=== PATIENT | female | born 1955 | race Caucasian/White ===

== ENCOUNTER 2019-05-03 04:10 | Inpatient (IN) ==
[2019-05-03] MEDS ORDERED: SODIUM CHLORIDE 0.9% 1,000 ML IV STA (04:52)
[2019-05-03] MEDS ORDERED: MORPHINE 4 MG/1 ML VIAL IV STA (04:52)
[2019-05-03] MEDS ORDERED: methylPREDNISolone SOD SUC 125 MG/2 ML VIAL IV STA (04:52)
[2019-05-03] MEDS ORDERED: ALBUTEROL/IPRATROPIUM 3 ML NEB RESP TX STA (04:52)
[2019-05-03] MEDS ORDERED: ONDANSETRON 4 MG/2 ML VIAL IV STA ×2 (04:52→06:09)
[2019-05-03 05:01] LABS: Basophils % 0.5 % (0.0-0.8); Eosinophils # 0.1 10*3/uL (0.0-0.87); Eosinophils % 1.6 % (0.00-10.9); Hematocrit 47.6 VOL% (35.7-47.0); Hemoglobin 15.9 GM/DL (12.0-16.0); Immature Granulocytes % 0.2 %; Immature Granulocytes Absolute 0.02 #; Lymphocytes # 3.2 10*3/uL (1.4-4.0); Lymphocytes % 37.3 % (21.3-54.2); Mean Corpuscular HGB Conc 33.4 GM/DL (32-36); Mean Corpuscular Volume 85.8 FL (87-102); Monocytes % 14.7 % (1.7-12.7); Neutrophils % 45.7 % (38.7-73.9); Platelet Count 282 T/CUMM (130-400); Red Blood Count 5.55 MC/CUMM (3.8-5.5); Red Cell Distribution Width 16.2 % (9.3-17.3); White Blood Count 8.7 T/CUMM (4-12)
[2019-05-03 05:15] LABS: Albumin 3.5 G/DL (3.4-5.0); Bilirubin,Total 0.4 MG/DL (0.2-1.0); Calcium 8.4 MG/DL (8.5-10.1); Total Protein 6.8 G/DL (6.4-8.3)
[2019-05-03] MEDS ORDERED: CLINDAMYCIN INJ 600 MG in PREMIX 1 EACH IV STA (06:10)
[2019-05-03] MEDS ORDERED: LEVOFLOXACIN INJ 500 MG in PREMIX 1 EACH IV STA (06:10)
[2019-05-03] MEDS ORDERED: BUPIVACAINE 0.25% /EPI 10 ML VIAL ONE (06:29)
[2019-05-03] MEDS ORDERED: LIDOCAINE 1%/EPI INJ 20 ML VIAL ONE (06:29)
[2019-05-03 06:52] LABS: Apearance,Urine CLEAR (Clear); Bilirubin,Urine Negative (Negative); Blood, Urine Negative (Negative); Glucose,Urine (UA) Negative (Negative); Ketones,Urine Negative (Negative); Mucus,Urine Occasional /LPF (Occasional); Nitrite,Urine Negative (Negative); Protein,Urine Negative; RBC,Urine 3 /HPF (0-4); Squamous Epithelial Cell,Urine Occasional /HPF (0-10); Urine Color Yellow (Yellow); Urine Specific Gravity > 1.060 (1.001-1.035); Urine Urobilinogen < 2.0 EU/DL (0.2-1.0); WBC,Urine 1 /HPF (0-6)
[2019-05-03] MEDS ORDERED: ALBUTEROL 2.5 MG/3 ML NEB RESP TX ONE (07:20)
[2019-05-03] MEDS: LACTATED RINGERS 1,000 ML IV SCH ×2 (07:25→15:40)
[2019-05-03] MEDS ORDERED: TISSUE ADHESIVE 1 EACH APPLICATOR TOP ONE (08:12)
[2019-05-03] MEDS ORDERED: propofoL 200 MG/20 ML VIAL IV ONE (08:38)
[2019-05-03] MEDS ORDERED: SEVOFLURANE 1 UNIT/15 MINUTE INH ONE (08:38)
[2019-05-03] MEDS ORDERED: ONDANSETRON 4 MG/2 ML VIAL ONE ×2 (08:39→08:58)
[2019-05-03] MEDS ORDERED: fentaNYL 100 MCG/2 ML VIAL ONE (08:39)
[2019-05-03] MEDS ORDERED: SUCCINYLCHOLINE 200 MG/10 ML VIAL ONE (08:39)
[2019-05-03] MEDS ORDERED: PHENYLEPHRINE 1 MG/10 ML SYRINGE IV ONE (08:39)
[2019-05-03] MEDS ORDERED: ACETAMINOPHEN 1,000 MG/100 ML VIAL IV ONE (08:39)
[2019-05-03] MEDS ORDERED: MIDAZOLAM 2 MG/2 ML VIAL ONE (08:39)
[2019-05-03] MEDS ORDERED: ROCURONIUM 100 MG/10 ML VIAL IV ONE (08:40)
[2019-05-03] MEDS ORDERED: ONDANSETRON 4 MG/2 ML VIAL IV PRN (08:45)
[2019-05-03] MEDS: HYDROmorphone 2 MG/1 ML VIAL IV PRN ×5 (08:55→23:49)
[2019-05-03] MEDS ORDERED: HYDROmorphone 2 MG/1 ML VIAL ONE (08:58)
[2019-05-03] MEDS: PANTOPRAZOLE 40 MG TABLET PO SCH (10:15)
[2019-05-03] MEDS: NICOTINE 21 MG/24 HR PATCH TRANSDERM SCH (18:06)
[2019-05-03] MEDS: DOCUSATE SODIUM 100 MG CAPSULE PO SCH (20:16)
[2019-05-04] MEDS: LACTATED RINGERS 1,000 ML IV SCH ×2 (00:05→08:49)
[2019-05-04] MEDS: PANTOPRAZOLE 40 MG TABLET PO SCH (08:38)
[2019-05-04] MEDS: DOCUSATE SODIUM 100 MG CAPSULE PO SCH ×2 (08:38→21:03)
[2019-05-04] MEDS: NICOTINE 21 MG/24 HR PATCH TRANSDERM SCH (08:38)
[2019-05-04] MEDS: HYDROmorphone 2 MG/1 ML VIAL IV PRN ×2 (08:40→18:00)
[2019-05-04] MEDS: ONDANSETRON 4 MG/2 ML VIAL IV PRN ×2 (08:40→18:00)
[2019-05-04] MEDS: CIPROFLOXACIN INJ 400 MG in PREMIX 1 EACH IV SCH ×2 (09:12→21:21)
[2019-05-04] MEDS: BISACODYL 10 MG SUPP RECTAL SCH ×2 (09:12→21:03)
[2019-05-04] MEDS: ALBUTEROL/IPRATROPIUM 3 ML NEB RESP TX SCH (19:25)
[2019-05-05] MEDS: ALBUTEROL/IPRATROPIUM 3 ML NEB RESP TX SCH ×2 (00:37→06:57)
[2019-05-05 05:30] LABS: Basophils % 0.3 % (0.0-0.8); Eosinophils # 0.1 10*3/uL (0.0-0.87); Eosinophils % 0.6 % (0.00-10.9); Hematocrit 40.3 VOL% (35.7-47.0); Hemoglobin 13.3 GM/DL (12.0-16.0); Immature Granulocytes % 0.3 %; Immature Granulocytes Absolute 0.03 #; Lymphocytes # 3.1 10*3/uL (1.4-4.0); Lymphocytes % 26.9 % (21.3-54.2); Mean Corpuscular Volume 87.2 FL (87-102); Monocytes % 10.1 % (1.7-12.7); Neutrophils % 61.8 % (38.7-73.9); Platelet Count 282 T/CUMM (130-400); Red Blood Count 4.62 MC/CUMM (3.8-5.5); Red Cell Distribution Width 16.7 % (9.3-17.3); White Blood Count 11.5 T/CUMM (4-12)
[2019-05-05 05:56] LABS: Calcium 8.3 MG/DL (8.5-10.1); Osmolality,Calculated 269.2 MOS/KG (273-304)
[2019-05-05] MEDS: NICOTINE 21 MG/24 HR PATCH TRANSDERM SCH (08:42)
[2019-05-05] MEDS: BISACODYL 10 MG SUPP RECTAL SCH (08:42)
[2019-05-05] MEDS: PANTOPRAZOLE 40 MG TABLET PO SCH (08:42)
[2019-05-05] MEDS: CIPROFLOXACIN INJ 400 MG in PREMIX 1 EACH IV SCH (08:46)
[2019-05-05] MEDS: DOCUSATE SODIUM 100 MG CAPSULE PO SCH (10:11)
[2019-05-05 11:37] VITALS: BP 109/55
== END 2019-05-05 13:00 | disposition home or self-care (01) | DRG 342 ==
LOC: N.ED 04:10 → N.EDINP 06:11 → N.3E 07:26
PROVIDERS: ADMIT Surgery; ATTEND Surgery

== ENCOUNTER 2019-05-25 13:32 | Observation (INO) ==
[2019-05-25 15:26] LABS: Basophils % 0.2 % (0.0-0.8); Hematocrit 48.1 VOL% (35.7-47.0); Hemoglobin 15.2 GM/DL (12.0-16.0); Immature Granulocytes % 0.6 %; Immature Granulocytes Absolute 0.09 #; Lymphocytes # 0.6 10*3/uL (1.4-4.0); Lymphocytes % 4.3 % (21.3-54.2); Mean Corpuscular HGB Conc 31.6 GM/DL (32-36); Mean Corpuscular Volume 90.4 FL (87-102); Monocytes % 9.3 % (1.7-12.7); Neutrophils % 85.6 % (38.7-73.9); Platelet Count 282 T/CUMM (130-400); Red Blood Count 5.32 MC/CUMM (3.8-5.5); Red Cell Distribution Width 16.2 % (9.3-17.3); White Blood Count 14.7 T/CUMM (4-12)
[2019-05-25 15:52] LABS: Alanine Aminotransferase 38 U/L (13-56); Albumin 3.6 G/DL (3.4-5.0); Alkaline Phosphatase 117 U/L (45-117); Aspartate Amino Transferase 38 U/L (0-37); Bilirubin,Total < 0.39 MG/DL (0.2-1.0); Blood Urea Nitrogen 26 MG/DL (7-18); Calcium 9.2 MG/DL (8.5-10.1); Estimated Glom Filtration Rate 70 ML/MIN; Glucose 103 MG/DL (74-106); Osmolality,Calculated 274.1 MOS/KG (273-304); Total Protein 7.9 G/DL (6.4-8.3)
[2019-05-25] MEDS ORDERED: SODIUM CHLORIDE 0.9% 1,000 ML IV STA (15:55)
[2019-05-25 16:11] LABS: Apearance,Urine CLOUDY (Clear); Bilirubin,Urine Negative (Negative); Blood, Urine Negative (Negative); Glucose,Urine (UA) Negative (Negative); Hyaline Casts,Urine 121 /LPF (0-3); Ketones,Urine Negative (Negative); Mucus,Urine Many /LPF (Occasional); Nitrite,Urine Negative (Negative); Protein,Urine Negative; RBC,Urine 1 /HPF (0-4); Squamous Epithelial Cell,Urine Occasional /HPF (0-10); Urine Color Amber (Yellow); Urine Specific Gravity 1.019 (1.001-1.035); WBC,Urine 2 /HPF (0-6)
[2019-05-25 16:17] LABS: Lymphocytes 9 % (20-55); Platelet Estimate Normal; Segmented Neutrophils 84 % (50-85); Total Cells Counted 100
[2019-05-25 16:32] LABS: Barbiturates Screen,Urine Negative (Negative); Benzodiazepines Screen,Urine Positive (Negative); Cannabinoid Screen,Urine Negative (Negative); Opiate Screen,Urine Negative (Negative); Phencyclidine Screen,Urine Negative (Negative)
[2019-05-25] MEDS ORDERED: ONDANSETRON 4 MG/2 ML VIAL IV PRN (17:38)
[2019-05-25] MEDS: SODIUM CHLORIDE 0.9% 1,000 ML IV SCH (18:40)
[2019-05-26] MEDS: SODIUM CHLORIDE 0.9% 1,000 ML IV SCH ×3 (03:07→21:14)
[2019-05-26] MEDS: NICOTINE 21 MG/24 HR PATCH TRANSDERM SCH (04:00)
[2019-05-26] MEDS: ACETAMINOPHEN 325 MG TABLET PO PRN ×4 (04:01→21:14)
[2019-05-26 05:07] LABS: Basophils % 0.4 % (0.0-0.8); Eosinophils % 0.1 % (0.00-10.9); Hematocrit 42.1 VOL% (35.7-47.0); Hemoglobin 13.2 GM/DL (12.0-16.0); Immature Granulocytes % 0.3 %; Immature Granulocytes Absolute 0.03 #; Lymphocytes # 1.7 10*3/uL (1.4-4.0); Lymphocytes % 15.9 % (21.3-54.2); Mean Corpuscular HGB Conc 31.4 GM/DL (32-36); Mean Corpuscular Volume 90.7 FL (87-102); Mean Platelet Volume 11.1 FL (9.6-12.0); Monocytes % 11.8 % (1.7-12.7); Neutrophils % 71.5 % (38.7-73.9); Platelet Count 350 T/CUMM (130-400); Red Blood Count 4.64 MC/CUMM (3.8-5.5); Red Cell Distribution Width 16.4 % (9.3-17.3); White Blood Count 10.6 T/CUMM (4-12)
[2019-05-26 05:41] LABS: Calcium 8.4 MG/DL (8.5-10.1); Thyroid Stimulating Hormone 0.433 uIU/ml (0.358-3.74)
[2019-05-26] MEDS: ENOXAPARIN 40 MG/0.4 ML SYRINGE SUBCUT SCH (10:48)
[2019-05-26] MEDS: PANTOPRAZOLE 40 MG TABLET PO SCH (10:48)
[2019-05-27] MEDS: ACETAMINOPHEN 325 MG TABLET PO PRN (01:42)
[2019-05-27 05:46] LABS: Basophils % 0.5 % (0.0-0.8); Eosinophils % 0.5 % (0.00-10.9); Hematocrit 41.1 VOL% (35.7-47.0); Immature Granulocytes % 0.4 %; Immature Granulocytes Absolute 0.03 #; Lymphocytes % 24.1 % (21.3-54.2); Mean Corpuscular HGB Conc 31.6 GM/DL (32-36); Mean Corpuscular Volume 91.1 FL (87-102); Mean Platelet Volume 11.5 FL (9.6-12.0); Monocytes % 11.8 % (1.7-12.7); Neutrophils % 62.7 % (38.7-73.9); Platelet Count 356 T/CUMM (130-400); Red Blood Count 4.51 MC/CUMM (3.8-5.5); Red Cell Distribution Width 16.3 % (9.3-17.3); White Blood Count 8.5 T/CUMM (4-12)
[2019-05-27 06:13] LABS: Osmolality,Calculated 273.8 MOS/KG (273-304)
[2019-05-27] MEDS: SODIUM CHLORIDE 0.9% 1,000 ML IV SCH ×2 (06:41→12:41)
[2019-05-27] MEDS: ENOXAPARIN 40 MG/0.4 ML SYRINGE SUBCUT SCH (09:08)
[2019-05-27] MEDS: NICOTINE 21 MG/24 HR PATCH TRANSDERM SCH (09:08)
[2019-05-27] MEDS: PANTOPRAZOLE 40 MG TABLET PO SCH (09:10)
[2019-05-27 13:41] VITALS: BP 111/69
== END 2019-05-27 15:20 | disposition home or self-care (01) ==
LOC: EDUNIT# → EDBD → N.3E 13:32 → N.ED 13:32 → INTOOBSV 17:38 → N.EDINP 17:38 → N.3E 18:28
PROVIDERS: ADMIT Internal Medicine; ATTEND Internal Medicine